=== PATIENT | female | born 1985 | race Caucasian/White ===

== ENCOUNTER 2018-05-16 11:57 | Inpatient (IN) | payer OTHER ==
[~2018-05-16] VITALS: Ht 149.9 cm; Wt 81.0 kg
[2018-05-16 12:19] VITALS: BP 149/101
[2018-05-16 12:22] LABS: BASOPHILS # (AUTO) 0.05 x10^3/uL (0-0.1); BASOPHILS % (AUTO) 0 % (0-1); EOSINOPHILS # (AUTO) 0.06 x10^3/uL (0-0.4); EOSINOPHILS % (AUTO) 1 % (1-7); LYMPHOCYTES # (AUTO) 2.66 x10^3/uL (1-3.4); LYMPHOCYTES % (AUTO) 21 % (22-44); MD NO; MEAN CORPUSCULAR HEMOGLOBIN 33.4 pg (27.0-34.8); MEAN CORPUSCULAR HGB CONC 34.9 g/dL (32.4-35.8); MEAN CORPUSCULAR VOLUME 95.6 fL (80-100); MEAN PLATELET VOLUME 9.2 fL (7.4-10.4); MONOCYTES # (AUTO) 0.75 x10^3/uL (0.2-0.8); MONOCYTES % (AUTO) 6 % (2-9); NEUTROPHILS # (AUTO) 9.15 x10^3/uL (1.8-6.8); NEUTROPHILS % (AUTO) 72 % (42-75); PLATELET COUNT 268 x10^3/uL (130-400); RED BLOOD COUNT 4.02 x10^6/uL (3.82-5.3); RED CELL DISTRIBUTION WIDTH 13.8 % (9.6-15.2)
[2018-05-16 12:28] LABS: MICROSCOPIC INDICATED
[2018-05-16 12:36] LABS: ALBUMIN 2.6 g/dL (3.4-5.0); ANION GAP 10 mmol/L (5-15); CALCIUM 9.3 mg/dL (8.5-10.1); CHLORIDE 108 mmol/L (98-107)
[2018-05-16 12:37] LABS: CREATININE,URINE RANDOM 79.4 mg/dL
[2018-05-16 12:41] LABS: ALANINE AMINOTRANSFERASE 16 U/L (12-78); ALKALINE PHOSPHATASE 180 U/L (45-117); BILIRUBIN, DIRECT < 0.1 mg/dL (0.1-0.2); BILIRUBIN,TOTAL 0.2 mg/dL (0.2-1.0); CREATININE 0.51 mg/dL (0.55-1.02); TOTAL PROTEIN 6.9 g/dL (6.4-8.2)
[2018-05-16] MEDS ORDERED: OXYTOCIN 30U/ 0.9% NaCL 500ML 500 ML IV ONE (12:51)
[2018-05-16] MEDS ORDERED: FENTANYL/BUPIV./NS/PF 250 ML EPIDCONT SCH (12:51)
[2018-05-16] MEDS ORDERED: OXYTOCIN 30U/ 0.9% NaCL 500ML 500 ML IV PRN (12:51)
[2018-05-16] MEDS ORDERED: LABETALOL 5MG/ML, 20ML IVPush PRN ×3 (13:00)
[2018-05-16] MEDS ORDERED: SODIUM CITRATE/CITRIC ACID 30 ML UDC PO PRN (13:00)
[2018-05-16] MEDS ORDERED: ONDANSETRON 2MG/ML, 2ML IVPush PRN (13:00)
[2018-05-16] MEDS ORDERED: hydrALAzine 20 MG/ML, 1ML IVPush ONE (13:00)
[2018-05-16] MEDS ORDERED: CALCIUM CARBONATE 500 MG TAB.CHEW PO PRN (13:00)
[2018-05-16] MEDS ORDERED: ALUMINUM/MAG/SIMETHICONE 30 ML UDC PO PRN (13:00)
[2018-05-16] MEDS ORDERED: SODIUM CHLORIDE FLUSH 10ML SYR IVF PRN (13:00)
[2018-05-16] MEDS: LACTATED RINGERS 1,000 ML IV SCH ×2 (13:25→22:37)
[2018-05-16] MEDS ORDERED: NEWBORN KIT ONE (13:50)
[2018-05-16] MEDS ORDERED: OXYTOCIN 30U/ 0.9% NaCL 500ML 500 ML ONE (13:51)
[2018-05-16] MEDS ORDERED: MISOPROSTOL 200 MCG TABLET ONE (13:51)
[2018-05-16] MEDS ORDERED: LIDOCAINE 1%, 20ML ONE (13:51)
[2018-05-16] MEDS ORDERED: MISOPROSTOL 25 MCG TABLET ONE ×3 (13:51→22:19)
[2018-05-16] MEDS: MISOPROSTOL 25 MCG TABLET VG PRN ×3 (14:00→22:38)
[2018-05-16] MEDS ORDERED: hydrALAzine 20 MG/ML, 1ML IV ONE (15:00)
[2018-05-16] MEDS ORDERED: MAGNESIUM SULFATE PMX 4GM/100M 100 ML IVPB ONE (15:00)
[2018-05-16] MEDS ORDERED: MAGNESIUM SULF. PMX 20GM/500ML 500 ML IV ONE ×2 (15:01→23:22)
[2018-05-16] MEDS: MAGNESIUM SULF. PMX 20GM/500ML 500 ML IV SCH ×2 (15:33→23:42)
[2018-05-16] MEDS ORDERED: FENTANYL PF 500 MCG, BUPIVACAINE/PF 0.5%, 30ML 62.5 ML in SODIUM CHLORIDE 0.9% 177.5 ML EPIDCONT SCH (17:30)
[2018-05-16] MEDS ORDERED: ACETAMINOPHEN 325 MG TABLET ONE ×2 (17:58→22:19)
[2018-05-16] MEDS: ACETAMINOPHEN 325 MG TABLET PO PRN ×2 (17:59→22:34)
[2018-05-16] MEDS ORDERED: CALCIUM CARBONATE 500 MG TAB.CHEW ONE (22:19)
[2018-05-17] MEDS ORDERED: MISOPROSTOL 25 MCG TABLET ONE ×2 (02:00→06:33)
[2018-05-17] MEDS: MISOPROSTOL 25 MCG TABLET VG PRN ×2 (02:05→06:39)
[2018-05-17] MEDS ORDERED: PROMETHAZINE 25 MG/ML, 1ML ONE (03:50)
[2018-05-17] MEDS ORDERED: MORPHINE SULFATE 4 MG/ML, 1ML ONE (03:50)
[2018-05-17] MEDS ORDERED: PROMETHAZINE 25 MG/ML, 1ML IM ONE (04:00)
[2018-05-17] MEDS ORDERED: MORPHINE SULFATE 4 MG/ML, 1ML IVPush ONE (04:00)
[2018-05-17] MEDS ORDERED: MORPHINE SULFATE 4 MG/ML, 1ML IVPush PRN (04:00)
[2018-05-17] MEDS ORDERED: PROMETHAZINE 25 MG/ML, 1ML IM PRN (04:00)
[2018-05-17] MEDS: LACTATED RINGERS 1,000 ML IV SCH ×3 (07:20→15:33)
[2018-05-17] MEDS ORDERED: MAGNESIUM SULF. PMX 20GM/500ML 500 ML IV ONE ×2 (10:58→21:53)
[2018-05-17] MEDS: MAGNESIUM SULF. PMX 20GM/500ML 500 ML IV SCH ×2 (11:01→21:58)
[2018-05-17] MEDS ORDERED: LIDOCAINE/PF 2%-EPI 1:200K, 10ML ONE (12:00)
[2018-05-17] MEDS ORDERED: hydrALAzine 20 MG/ML, 1ML IV ONE ×2 (13:30→15:00)
[2018-05-17] MEDS ORDERED: FENTANYL/BUPIV./NS/PF 250 ML EPIDCONT SCH ×2 (13:59→16:09)
[2018-05-17] MEDS ORDERED: FENTANYL PF 100 MCG/2ML ONE (14:56)
[2018-05-17] MEDS ORDERED: BUPIVACAINE 0.25% ONE (14:57)
[2018-05-17] MEDS ORDERED: TERBUTALINE 1 MG/ML, 1ML ONE (15:45)
[2018-05-17] MEDS ORDERED: LACTATED RINGERS 1,000 ML IV SCH (16:09)
[2018-05-17] MEDS ORDERED: ONDANSETRON 2MG/ML, 2ML IVPush PRN (16:30)
[2018-05-17] MEDS ORDERED: EPHEDRINE 50 MG/ML, 1ML IVPush PRN (16:30)
[2018-05-17] MEDS ORDERED: LACTATED RINGERS 1,000 ML IVBOLUS PRN (16:30)
[2018-05-17] MEDS ORDERED: ACETAMINOPHEN 325 MG TABLET ONE (19:32)
[2018-05-17] MEDS: ACETAMINOPHEN 325 MG TABLET PO PRN (19:35)
[2018-05-18] MEDS: LACTATED RINGERS 1,000 ML IV SCH ×3 (02:00→22:52)
[2018-05-18] MEDS ORDERED: FENTANYL PF 100 MCG/2ML ONE ×7 (03:41→12:10)
[2018-05-18] MEDS: FENTANYL PF 100 MCG/2ML IVPush PRN ×3 (03:48→10:51)
[2018-05-18] MEDS ORDERED: BUPIVACAINE 0.25% ONE (05:12)
[2018-05-18] MEDS ORDERED: ROPIvacaine/PF 0.2% , 100 ML ONE (05:13)
[2018-05-18] MEDS ORDERED: MAGNESIUM SULF. PMX 20GM/500ML 500 ML IV ONE ×2 (07:42→17:34)
[2018-05-18] MEDS: MAGNESIUM SULF. PMX 20GM/500ML 500 ML IV SCH ×2 (07:47→17:38)
[2018-05-18] MEDS ORDERED: LIDOCAINE/PF 1.5%-EPI 1:200K, 30ML ONE (08:30)
[2018-05-18] MEDS ORDERED: SODIUM CITRATE/CITRIC ACID 30 ML UDC ONE (09:29)
[2018-05-18] MEDS ORDERED: METOCLOPRAMIDE 5 MG/ML, 2ML ONE (09:29)
[2018-05-18] MEDS ORDERED: LACTATED RINGERS 1,000 ML IVBOLUS ONE (09:30)
[2018-05-18] MEDS ORDERED: hydrALAzine 20 MG/ML, 1ML IV ONE (09:30)
[2018-05-18] MEDS ORDERED: METOCLOPRAMIDE 5 MG/ML, 2ML IV ONE (09:30)
[2018-05-18] MEDS ORDERED: LACTATED RINGERS 1,000 ML IV SCH (09:31)
[2018-05-18] MEDS ORDERED: OXYTOCIN 30U/ 0.9% NaCL 500ML 500 ML IV SCH (09:31)
[2018-05-18] MEDS ORDERED: SODIUM BICARBONATE 4.0%, 5ML ONE (09:33)
[2018-05-18] MEDS ORDERED: PHENYLEPHRINE 10 MG/ML ONE (09:33)
[2018-05-18] MEDS ORDERED: MISOPROSTOL 200 MCG TABLET PR PRN (10:00)
[2018-05-18] MEDS ORDERED: RHOGAM FROM BLOOD BANK 1 NOTE EA IM/IV ONE (10:00)
[2018-05-18] MEDS ORDERED: MORPHINE SULFATE 4 MG/ML, 1ML IVPush PRN ×2 (10:00→11:00)
[2018-05-18] MEDS ORDERED: IBUPROFEN 600 MG TABLET PO PRN (10:00)
[2018-05-18] MEDS ORDERED: DOCUSATE 100 MG CAPSULE PO PRN (10:00)
[2018-05-18] MEDS ORDERED: DIPH,PERTUSS(ACELL),TET VAC/PF NC IM-VACC PRN (10:00)
[2018-05-18] MEDS ORDERED: CALCIUM CARBONATE 500 MG TAB.CHEW PO PRN (10:00)
[2018-05-18] MEDS ORDERED: ONDANSETRON 2MG/ML, 2ML IV PRN ×2 (10:00→11:00)
[2018-05-18] MEDS ORDERED: SIMETHICONE 80 MG CHEW TAB PO PRN (10:00)
[2018-05-18] MEDS ORDERED: MEASLES,MUMPS&RUBELLA VACC/PF 0.5 ML SQ-VACC PRN (10:00)
[2018-05-18] MEDS ORDERED: OXYcodone/APAP 5/325MG TABLET PO PRN (10:00)
[2018-05-18] MEDS ORDERED: OXYTOCIN 10 UNITS/ML, 1ML ONE (10:06)
[2018-05-18] MEDS ORDERED: CEFAZOLIN 1,000 MG ONE (10:06)
[2018-05-18] MEDS ORDERED: morphine SULFATE 10 MG/ML, 1ML ONE ×2 (10:09)
[2018-05-18] MEDS ORDERED: KETAMINE 10 MG/ML, 20ML ONE (10:12)
[2018-05-18] MEDS ORDERED: MIDAZOLAM 1 MG/ML, 2ML ONE (10:18)
[2018-05-18] MEDS ORDERED: OXYcodone 5 MG/5 ML ORAL.SOL UDC ONE (10:49)
[2018-05-18] MEDS: FENTANYL PF 100 MCG/2ML IV PRN ×3 (10:53→12:11)
[2018-05-18] MEDS ORDERED: HYDROmorphone 2 MG/ML, 1ML IVPush PRN (11:00)
[2018-05-18] MEDS ORDERED: DIPHENHYDRAMINE 50 MG/ML, 1ML IVPush PRN (11:00)
[2018-05-18] MEDS ORDERED: hydrALAzine 20 MG/ML, 1ML IV PRN (11:00)
[2018-05-18] MEDS ORDERED: EPHEDRINE 50 MG/ML, 1ML IVPush PRN (11:00)
[2018-05-18] MEDS ORDERED: DEXAMETHASONE 4 MG/ML, 1ML IV PRN (11:00)
[2018-05-18] MEDS ORDERED: MIDAZOLAM 1 MG/ML, 2ML IV PRN (11:00)
[2018-05-18] MEDS ORDERED: OXYcodone 5 MG/5 ML ORAL.SOL UDC PO PRN (11:00)
[2018-05-18] MEDS ORDERED: LABETALOL 5MG/ML, 20ML IV PRN (11:00)
[2018-05-18] MEDS ORDERED: KETOROLAC 30 MG/1 ML ONE ×2 (13:56→20:03)
[2018-05-18] MEDS: KETOROLAC 30 MG/1 ML IV SCH ×2 (14:01→20:08)
[2018-05-18] MEDS ORDERED: OXYcodone IR 5MG TABLET ONE ×2 (14:58→22:53)
[2018-05-18] MEDS: OXYcodone IR 5MG TABLET PO PRN ×3 (15:00→22:56)
[2018-05-18] MEDS ORDERED: ACETAMINOPHEN 325 MG TABLET ONE (21:47)
[2018-05-18] MEDS: ACETAMINOPHEN 325 MG TABLET PO PRN (21:48)
[2018-05-19] MEDS ORDERED: KETOROLAC 30 MG/1 ML ONE ×2 (01:51→09:09)
[2018-05-19] MEDS: KETOROLAC 30 MG/1 ML IV SCH ×2 (01:54→09:13)
[2018-05-19] MEDS ORDERED: OXYcodone IR 5MG TABLET ONE (03:27)
[2018-05-19] MEDS: OXYcodone IR 5MG TABLET PO PRN (03:30)
[2018-05-19] MEDS ORDERED: MAGNESIUM SULF. PMX 20GM/500ML 500 ML IV ONE (04:18)
[2018-05-19] MEDS: MAGNESIUM SULF. PMX 20GM/500ML 500 ML IV SCH (04:40)
[2018-05-19 06:34] VITALS: BP 138/74
[2018-05-19] MEDS ORDERED: PRENATAL VIT/IRON/FA 1 EACH TABLET PO SCH (09:00)
[2018-05-19] MEDS ORDERED: OXYcodone/APAP 10/325MG TABLET ONE (09:09)
[2018-05-19] MEDS ORDERED: OXYcodone/APAP 5/325MG TABLET ONE (09:24)
[2018-05-19] MEDS ORDERED: PRENATAL VIT/IRON/FA 1 EACH TABLET ONE (09:25)
[2018-05-19] MEDS: BUSPIRONE 5 MG TABLET PO SCH (10:09)
[2018-05-19 13:21] LABS: BASOPHILS # (AUTO) 0.01 x10^3/uL (0-0.1); BASOPHILS % (AUTO) 0 % (0-1); EOSINOPHILS # (AUTO) 0.07 x10^3/uL (0-0.4); EOSINOPHILS % (AUTO) 1 % (1-7); LYMPHOCYTES # (AUTO) 1.66 x10^3/uL (1-3.4); LYMPHOCYTES % (AUTO) 14 % (22-44); MD NO; MEAN CORPUSCULAR HEMOGLOBIN 33.7 pg (27.0-34.8); MEAN CORPUSCULAR HGB CONC 34.8 g/dL (32.4-35.8); MEAN CORPUSCULAR VOLUME 96.8 fL (80-100); MEAN PLATELET VOLUME 8.6 fL (7.4-10.4); MONOCYTES # (AUTO) 0.65 x10^3/uL (0.2-0.8); MONOCYTES % (AUTO) 5 % (2-9); NEUTROPHILS # (AUTO) 9.72 x10^3/uL (1.8-6.8); NEUTROPHILS % (AUTO) 80 % (42-75); PLATELET COUNT 209 x10^3/uL (130-400); RED BLOOD COUNT 3.12 x10^6/uL (3.82-5.3); RED CELL DISTRIBUTION WIDTH 14.2 % (9.6-15.2)
[2018-05-19 13:31] VITALS: BP 138/88
[2018-05-19] MEDS ORDERED: OXYcodone/APAP 10/325MG TABLET PO PRN (16:00)
[2018-05-19] MEDS ORDERED: OXYcodone/APAP 5/325MG TABLET PO PRN (16:00)
[2018-05-19] MEDS: KETOROLAC 30 MG/1 ML IVPush SCH ×2 (16:11→22:06)
[2018-05-19 18:31] VITALS: BP 150/84
[2018-05-19 20:30] VITALS: BP 141/95
[2018-05-19] MEDS: DOCUSATE 100 MG CAPSULE PO PRN (22:06)
[2018-05-20 01:00] VITALS: BP 131/90
[2018-05-20] MEDS: KETOROLAC 30 MG/1 ML IVPush SCH (04:12)
[2018-05-20 04:30] VITALS: BP 144/95
[2018-05-20 07:00] VITALS: BP 142/83
[2018-05-20] MEDS: DOCUSATE 100 MG CAPSULE PO PRN (07:58)
[2018-05-20] MEDS: BUSPIRONE 5 MG TABLET PO SCH (07:58)
[2018-05-20] MEDS: niFEDipine ER 30 MG TABLET.ER PO SCH (09:17)
[2018-05-20 12:03] VITALS: BP 142/83
[2018-05-20] MEDS: IBUPROFEN 600 MG TABLET PO PRN ×2 (12:07→18:53)
[2018-05-20 16:00] VITALS: BP 144/89
[2018-05-20 20:20] VITALS: BP 144/96
[2018-05-21 00:50] VITALS: BP 135/83
[2018-05-21] MEDS: IBUPROFEN 600 MG TABLET PO PRN ×4 (00:51→22:43)
[2018-05-21] MEDS: DOCUSATE 100 MG CAPSULE PO PRN ×3 (00:52→22:43)
[2018-05-21 05:00] VITALS: BP 141/94
[2018-05-21] MEDS: niFEDipine ER 30 MG TABLET.ER PO SCH (08:30)
[2018-05-21] MEDS: BUSPIRONE 5 MG TABLET PO SCH (08:31)
[2018-05-21 09:00] VITALS: BP 139/89
[2018-05-21 17:00] VITALS: BP 139/89
[2018-05-21 19:35] VITALS: BP 135/90
[2018-05-22 00:50] VITALS: BP 140/97
[2018-05-22 04:45] VITALS: BP 132/89
[2018-05-22] MEDS: IBUPROFEN 600 MG TABLET PO PRN ×2 (04:47→14:35)
[2018-05-22] MEDS: niFEDipine ER 30 MG TABLET.ER PO SCH (07:54)
[2018-05-22] MEDS: DOCUSATE 100 MG CAPSULE PO PRN (07:54)
[2018-05-22] MEDS: BUSPIRONE 5 MG TABLET PO SCH (07:54)
[2018-05-22 08:00] VITALS: BP 142/95
[2018-05-22] MEDS ORDERED: OXYC-302 PO (09:40)
[2018-05-22] MEDS ORDERED: IBUP-1222 PO (09:40)
[2018-05-22] MEDS ORDERED: NIFE30TA2 PO (09:42)
== END 2018-05-22 19:00 | disposition home or self-care (01) | DRG 788 ==
LOC: LDOP 11:57 → LDIP 13:27 → UNDOADMIN 13:27 → EDIP 13:27 → 2NE 05-18 15:19 → 2NW 05-19 12:50
PROVIDERS: ADMIT Obstetrics & Gynecology Gynecology; ATTEND Obstetrics & Gynecology Gynecology
PROC: 10D00Z1 Extraction of Products of Conception, Low, Open Approach (ICD-10-PCS; principal; 2018-05-18)
DX: O32.4XX0 Maternal care for high head at term, not applicable or unspecified (principal); Z37.0 Single live birth; O14.14 Severe pre-eclampsia complicating childbirth; Z3A.37 37 weeks gestation of pregnancy; O99.344 Other mental disorders complicating childbirth; Z80.3 Family history of malignant neoplasm of breast; Z82.3 Family history of stroke; Z83.3 Family history of diabetes mellitus; F90.9 Attention-deficit hyperactivity disorder, unspecified type; F41.0 Panic disorder [episodic paroxysmal anxiety]; Z88.0 Allergy status to penicillin; Z88.2 Allergy status to sulfonamides; Z88.8 Allergy status to other drugs, medicaments and biological substances
CPT/HCPCS: 36415; 80053; 81001; 82248; 82570; 82803; 83735; 84156; 84550; 85025; 86850; 86900; 87806; G0378; J0690; J1885; J2250; J2550; J2795; J3010; J3490; G0475; J0360; J2270; J2370; J2590; J2765; J3475; J7050; J7120